=== PATIENT | female | born 1960 | race Caucasian/White ===

== ENCOUNTER 2017-08-26 14:20 | Day surgery (SDC) | payer OTHER ==
[~2017-08-26] VITALS: Ht 160 cm; Wt 73.5 kg
[~2017-08-26 14:20] MED LIST: ACETIC ACID2 % AU; AMLOD/BENAZP1 CA3 PO; AMOXICILLIN500 MG PO; AMOXICILLIN875 MG PO; ATORVASTATIN CA10 MG PO; AUGMENTIN875TAB PO; BENAZEPRIL20 MG PO; BENZONATATE200 MG PO; CHERATUSSIN OR; CIPROFLOXACN500 MG PO; ESTRACE0.5 MG PO; ESTRADERM0.05 MG TD; KEFLEX500 MG PO; LIPITOR10 MG PO; METRONIDAZOL500 MG PO; MULTIVITA2 PO; NORCO1 TA1 PO; NORVASC10 MG PO; PREDNISONE20 MG PO; PROBIOTIC1 TAB PO; PROVENTIL HFA IN; PYRIDIUM200 MG PO; THERALITH XR PO; TYLENOL PM PO; ULTRAM50 M1 PO; VITAMIN D2000 UNI1 PO; ZITHROMAX250 MG PO
[2017-08-26 17:19] VITALS: BP 115/65
== END 2017-08-26 17:20 | disposition home or self-care (01) | DRG 392 ==
LOC: ENDO 14:20
PROVIDERS: ATTEND Internal Medicine Gastroenterology
PROC: 0DBN8ZX Excision of Sigmoid Colon, Via Natural or Artificial Opening Endoscopic, Diagnostic (ICD-10-PCS; principal; 2017-08-26)
DX: K57.30 Diverticulosis of large intestine without perforation or abscess without bleeding (principal); Q43.8 Other specified congenital malformations of intestine; R19.7 Diarrhea, unspecified; K59.00 Constipation, unspecified; K63.5 Polyp of colon; K64.4 Residual hemorrhoidal skin tags; K64.8 Other hemorrhoids; K21.9 Gastro-esophageal reflux disease without esophagitis; Z80.0 Family history of malignant neoplasm of digestive organs

== ENCOUNTER 2018-05-27 09:08 | Emergency (ER) | payer OTHER ==
[~2018-05-27] VITALS: Ht 160 cm; Wt 75.0 kg
[2018-05-27] MEDS ORDERED: TORADOL PO (10:25)
[2018-05-27] MEDS ORDERED: AMOXICILLIN500 MG PO (10:25)
[2018-05-27 10:32] VITALS: BP 142/83
== END 2018-05-27 10:32 | disposition home or self-care (01) | DRG 153 ==
LOC: ED 09:08
DX: J06.9 Acute upper respiratory infection, unspecified (principal); J02.9 Acute pharyngitis, unspecified

== ENCOUNTER 2019-04-08 21:49 | Emergency (ER) | payer OTHER ==
[~2019-04-08] VITALS: Ht 160 cm; Wt 78.0 kg
[~2019-04-08 21:49] MED LIST changes: +TORADOL PO
[2019-04-09 00:30] LABS: HEMATOCRIT 39.9 % (37.0-47.0); HEMOGLOBIN 12.9 g/dl (12.0-16.0); IMMATURE GRANULOCYTES 0.6 % (0.0-5.0); MEAN CELL VOLUME 91.1 fL CALC (80.0-100.0); MEAN CORPUSCULAR HGB 29.5 pG CALC (26.0-32.0); MEAN CORPUSCULAR HGB CONC 32.3 g/L CALC (32.0-36.0); NEUT# 7.04 thou/uL (2.00-7.15); RED BLOOD COUNT 4.38 mill/uL (4.20-5.60)
[2019-04-09 00:37] LABS: ALBUMIN 4.1 g/dL (3.2-5.0); ALKALINE PHOSPHATASE 64 u/l (38-126); ANION GAP 14 (6-22 (CALC)); BILIRUBIN, TOTAL 0.5 mg/dL (0.0-1.4); BUN 16 mg/dL (7-17); BUN/CREATININE RATIO 24 (12-20 (CALC)); CARBON DIOXIDE 24 mmol/l (22-30); CHLORIDE 104 mmol/l (95-108); CREATININE 0.7 mg/dL (0.5-1.0); GFR > 60 ML/MIN (>=60 (CALC)); GFR FOR AFR.AMER. > 60 ML/MIN (>=60 (CALC)); POTASSIUM 3.9 mmol/l (3.5-5.1); SGOT/AST 20 u/l (14-36); SODIUM 138 mmol/l (137-146)
[2019-04-09] MEDS ORDERED: VENTOLIN HF1 IN (04:22)
[2019-04-09] MEDS ORDERED: CODEINE/GUAIFEN1 SOL PO (04:22)
[2019-04-09] MEDS ORDERED: TAM75CAP PO (04:22)
[2019-04-09 04:30] VITALS: BP 107/50
== END 2019-04-09 04:30 | disposition home or self-care (01) | DRG 153 ==
LOC: ED 21:49
PROVIDERS: Emergency Medicine
DX: J11.1 Influenza due to unidentified influenza virus with other respiratory manifestations (principal)

== ENCOUNTER 2020-05-15 12:20 | Emergency (ER) | payer OTHER ==
[~2020-05-15] VITALS: Ht 162.6 cm; Wt 83.6 kg
[~2020-05-15 12:20] MED LIST changes: +CODEINE/GUAIFEN1 SOL PO; +TAM75CAP PO; +VENTOLIN HF1 IN
[2020-05-15] MEDS ORDERED: NURTEC75 MG (12:54)
[2020-05-15] MEDS ORDERED: INDERAL LA80 MG PO (12:54)
[2020-05-15] MEDS ORDERED: LEXAPRO10 MG PO (12:54)
[2020-05-15] MEDS ORDERED: SINGULAIR10 MG PO (12:55)
[2020-05-15] MEDS ORDERED: XGEVA SC (12:55)
[2020-05-15] MEDS ORDERED: NAPROXEN500 MG PO (13:29)
[2020-05-15 13:55] VITALS: BP 136/68
== END 2020-05-15 13:55 | disposition home or self-care (01) | DRG 563 ==
LOC: ED 12:20
DX: S53.402A Unspecified sprain of left elbow, initial encounter (principal); F41.9 Anxiety disorder, unspecified; V18.0XXA Pedal cycle driver injured in noncollision transport accident in nontraffic accident, initial encounter; Y93.55 Activity, bike riding

== ENCOUNTER 2022-02-28 13:50 | Emergency (ER) | payer OTHER ==
[~2022-02-28] VITALS: Ht 162.6 cm; Wt 81.0 kg
[~2022-02-28 13:50] MED LIST changes: +INDERAL LA80 MG PO; +LEXAPRO10 MG PO; +NAPROXEN500 MG PO; +NURTEC75 MG; +SINGULAIR10 MG PO; +XGEVA SC
[2022-02-28 14:03] VITALS: BP 103/66
[2022-02-28] MEDS ORDERED: OMNI-PAC300 MG PO (14:13)
[2022-02-28 14:22] VITALS: BP 103/66
== END 2022-02-28 14:27 | disposition home or self-care (01) | DRG 690 ==
LOC: ED 13:50
DX: N39.0 Urinary tract infection, site not specified (principal); F41.9 Anxiety disorder, unspecified